=== PATIENT | female | born 1945 | race Caucasian/White ===

== ENCOUNTER 2018-10-27 08:19 | Day surgery (SDC) | payer MEDICARE, OTHER, SELFPAY ==
[2018-10-27] MEDS: PROPARACAINE 0.5% OPHTH SOL 2 DROPS EYE-OP (09:07)
[2018-10-27 09:10] VITALS: BP 122/75; PULSE 72; RESP 20; TEMP 35.9; O2SAT 100
[2018-10-27] MEDS: CATARACT EYE COMPOUND (10 DROPS/SYRINGE) 3 DROPS EYE-OP (09:11)
[2018-10-27 09:12] VITALS: BMI 18.5
--- NOTE | 2018-10-27 10:21 | PM.PREOP ---
Pre-operative Note Interval Note History & Physical reviewed/Exam performed by Physician: No Changes to H&P: No
--- NOTE | 2018-10-27 10:21 | PM.OP.1 ---
Operative Date/Time/Diagnoses Pre-op diagnosis: Nuclear cataract right eye Procedure & Clinicians Procedure: Cataract Surgery Same procedure as scheduled: Yes Surgeon: Wilmer Burns Anesthesia Type: MAC +/- and Sedation Operative Notes Procedure in detail: Patient brought to the operating suite. Tetracaine drops placed in the right eye. Patient was prepped and draped in sterile manner. Wire lid speculum was placed in the eye. Betadine drops were placed on the eye. This was irrigated. Lidocaine jelly was placed on the eye. A paracentesis port was created with a side-port blade. 0.1 mL 1% preservative free lidocaine was injected into the anterior chamber. The anterior chamber was deepened with viscoelastic. 2.6 mm keratome was used to create a temporal clear corneal incision. Cystotome and Utrata forceps were used to create continuous tear capsulorrhexis. Balanced salt solution was used to hydro dissect the nucleus. The phacoemulsification handpiece was inserted and the nucleus was removed using the stop and chop technique. The irrigation aspiration handpiece was inserted and the remaining cortex was removed. Anterior chamber was deepened with viscoelastic. An Hernandez ZCB00 intraocular lens with a power of 18.5 was injected into the capsular bag. Irrigation aspiration handpiece was inserted and the remaining viscoelastic was removed. Incision was hydrated with balanced salt solution and found to be leak free with pressure with Weck-Roro sponges. 0.1 mL Vigamox injected anterior chamber. 0.3 mL Kenalog 10 mg was injected subconjunctivally. Lid speculum was removed. The patient left the operating room in excellent condition. Complications: none Post-operative Condition: stable Disposition: same day surgery
[2018-10-27] MEDS: MOXIFLOXACIN INJ 5 MG/ML VIAL EYE-OP (10:36)
[2018-10-27] MEDS: CHONDROIDTIN/SOD HYALURONATE 1.05 ML SYRINGE INTRAOCULA (10:36)
[2018-10-27] MEDS: PHENYLEPHRINE/LIDOCAINE VIAL (OR) 0.2 ML EYE-OP (10:36)
[2018-10-27] MEDS: TRIAMCINOLONE 50 MG/5 ML VIAL INJ (10:36)
[2018-10-27] MEDS: LIDOCAINE JELLY 2% 5 ML 1 APPLIC TOP (10:37)
[2018-10-27] MEDS: TETRACAINE 0.5% OPHTH DROPS 4 ML 2 DROPS EYE-OP (10:37)
[2018-10-27] MEDS: BALANCED SALT IRRIG SOLN NO.2 500 ML, EPINEPHrine 1 MG IRR (10:37)
[2018-10-27 11:27] VITALS: BP 98/62; PULSE 68; RESP 16; TEMP 36.4; O2SAT 96
== END 2018-10-27 11:12 | disposition home or self-care (01) ==
LOC: OR 08:24
PROVIDERS: PCP Physician Assistant; Visit Provider Ophthalmology
PROC: (CPT 66984; principal; 2018-10-27 10:15)
DX: H25.11 Age-related nuclear cataract, right eye (principal)
CPT/HCPCS: 66984; J0171; J2250; J3010; J3301

== ENCOUNTER 2018-11-10 07:24 | Day surgery (SDC) | payer MEDICARE, OTHER, SELFPAY ==
[2018-11-10] MEDS: PROPARACAINE 0.5% OPHTH SOL 2 DROPS EYE-OP (08:25)
[2018-11-10] MEDS: CATARACT EYE COMPOUND (10 DROPS/SYRINGE) 3 DROPS EYE-OP ×3 (08:26→08:39)
[2018-11-10 08:29] VITALS: BP 142/82; PULSE 65; RESP 16; TEMP 37.2; O2SAT 96; BMI 18.4
--- NOTE | 2018-11-10 08:51 | PM.PREOP ---
Pre-operative Note Interval Note History & Physical reviewed/Exam performed by Physician: No Changes to H&P: No
--- NOTE | 2018-11-10 08:51 | PM.OP.1 ---
Operative Date/Time/Diagnoses Pre-op diagnosis: Nuclear Cataract Left eye Post-op diagnosis: same Procedure & Clinicians Surgeon: Wilmer Burns Anesthesia Type: MAC +/- and Sedation Operative Notes Procedure in detail: Patient brought to the operating suite. Tetracaine drops placed in the left eye. Patient was prepped and draped in sterile manner. Wire lid speculum was placed in the eye. Betadine drops were placed on the eye. This was irrigated. Lidocaine jelly was placed on the eye. A paracentesis port was created with a side-port blade. 0.1 mL 1% preservative free lidocaine was injected into the anterior chamber. The anterior chamber was deepened with viscoelastic. 2.6 mm keratome was used to create a temporal clear corneal incision. Cystotome and Utrata forceps were used to create continuous tear capsulorrhexis. Balanced salt solution was used to hydro dissect the nucleus. The phacoemulsification handpiece was inserted and the nucleus was removed using the stop and chop technique. The irrigation aspiration handpiece was inserted and the remaining cortex was removed. Anterior chamber was deepened with viscoelastic. An Hernandez ZCB00 intraocular lens with a power of 21.0 was injected into the capsular bag. Irrigation aspiration handpiece was inserted and the remaining viscoelastic was removed. Incision was hydrated with balanced salt solution and found to be leak free with pressure with Weck-Roro sponges. 0.1 mL Vigamox injected anterior chamber. 0.3 mL Kenalog 10 mg was injected subconjunctivally. Lid speculum was removed. The patient left the operating room in excellent condition. Complications: none Post-operative Condition: stable Disposition: same day surgery
[2018-11-10] MEDS: TETRACAINE 0.5% OPHTH DROPS 4 ML 2 DROPS EYE-OP (09:07)
[2018-11-10] MEDS: CHONDROIDTIN/SOD HYALURONATE 1.05 ML SYRINGE INTRAOCULA (09:07)
[2018-11-10] MEDS: MOXIFLOXACIN INJ 5 MG/ML VIAL EYE-OP (09:07)
[2018-11-10] MEDS: TRIAMCINOLONE 50 MG/5 ML VIAL INJ (09:07)
[2018-11-10] MEDS: LIDOCAINE JELLY 2% 5 ML 1 APPLIC TOP (09:07)
[2018-11-10] MEDS: PHENYLEPHRINE/LIDOCAINE VIAL (OR) 0.2 ML EYE-OP (09:08)
[2018-11-10] MEDS: BALANCED SALT IRRIG SOLN NO.2 500 ML, EPINEPHrine 1 MG IRR (09:08)
[2018-11-10 09:20] VITALS: BP 124/77; PULSE 74; RESP 16; TEMP 36.6; O2SAT 96
== END 2018-11-10 09:30 | disposition home or self-care (01) ==
LOC: OR 07:26
PROVIDERS: Visit Provider Ophthalmology
PROC: (CPT 66984; principal; 2018-11-10 09:15)
DX: H25.12 Age-related nuclear cataract, left eye (principal)
CPT/HCPCS: 66984; J0171; J2250; J3010; J3301

== ENCOUNTER → 2018-12-22 10:20 | Outpatient (CLI) | payer MEDICARE, OTHER, SELFPAY ==
--- NOTE | 2018-12-22 | DI.RAD.S_ITS ---
PROCEDURE: XR CHEST 2V INDICATIONS: Chronic obstructive pulmonary disease TECHNIQUE: 2 views of the chest were acquired. COMPARISON: [facility], , CHEST 2 VIEW, 04/26/2015, 11:30. FINDINGS: Surgical changes and devices: None. Lungs and pleura: Lungs are clear. Blunting of the costophrenic angles suggestive of trace pleural effusions. No pneumothorax. Mediastinum: Mediastinal contours are normal and unchanged. Heart size is normal. Bones and chest wall: No suspicious bony abnormalities. Soft tissues appear unremarkable. IMPRESSION: No consolidation. Probable trace bilateral pleural effusions. Dictated by: Skyler Francis M.D. on 12/22/2018 at 11:05 Approved by: Skyler Francis M.D. on 12/22/2018 at 11:07
--- NOTE | 2018-12-22 | DI.MG.S_ITS ---
BILATERAL DIGITAL SCREENING MAMMOGRAM 3D/2D WITH CAD: 12/22/2018 CLINICAL: Routine screening. Family history of breast cancer. Comparison is made to exams dated: 05/23/2016 mammogram, 06/23/2013 mammogram, and 05/01/2015 mammogram - [facility]. The tissue of both breasts is heterogeneously dense. This may lower the sensitivity of mammography. Current study was also evaluated with a Computer Aided Detection (CAD) system. There are benign calcifications in both breasts. There also are benign post operative findings in the right breast. No significant masses, calcifications, or other findings are seen in either breast. There has been no significant interval change. IMPRESSION: There is no mammographic evidence of malignancy. A 1 year screening mammogram is recommended. This exam was interpreted at Station ID: [id number]. NOTE: For mammograms, a report in lay terms will be sent to the patient. Approximately 15% of breast malignancies will not be visualized mammographically. In the management of a palpable breast mass, a negative mammogram must not discourage biopsy of a clinically suspicious lesion. Electronically Signed By: Roger de la cruz/soco:12/22/2018 10:57:02 letter sent: Normal Exam ACR BI-RADS Category 2: Benign Finding(s) 3342F
== END ==
PROVIDERS: PCP Internal Medicine; Visit Provider Internal Medicine
DX: Z12.31 Encounter for screening mammogram for malignant neoplasm of breast (principal); Z80.3 Family history of malignant neoplasm of breast; J44.9 Chronic obstructive pulmonary disease, unspecified
CPT/HCPCS: 71046; 77063; 77067

== ENCOUNTER → 2019-08-24 12:24 | Outpatient (CLI) | payer MEDICARE, OTHER, SELFPAY | PROVIDERS: PCP Internal Medicine; Referring Provider Internal Medicine; Visit Provider Internal Medicine | DX: M81.0 Age-related osteoporosis without current pathological fracture (principal); Z78.0 Asymptomatic menopausal state; F17.200 Nicotine dependence, unspecified, uncomplicated | CPT/HCPCS: 77080 ==

== ENCOUNTER → 2020-04-18 20:08 | Outpatient (ROUT) | payer MEDICARE, OTHER, SELFPAY ==
[2020-04-18 20:12] LABS: Add Manual Diff / Slide Review NO; Basophils Absolute Auto 0 /uL (0-100); Basophils Percent Auto 0.4 % (0-2); Eosinophils Absolute Auto 300 /uL (0-450); Eosinophils Percent Auto 3.5 % (2-4); Hemoglobin 14.4 g/dL (12.0-16.0); Lymphocytes Absolute Auto 1700 /uL (1100-4500); Lymphocytes Percent Auto 20.3 % (25-40); Mean Corpuscular HGB Conc 33.4 % (30-36); Mean Corpuscular Hemoglobin 30.6 PG (26-34); Mean Corpuscular Volume 91.5 fL (80-100); Monocytes Absolute Auto 500 /uL (0-900); Monocytes Percent Auto 6.3 % (3-14); Neutrophils Absolute Auto 5900 /uL (1500-7000); Neutrophils Percent Auto 69.5 % (50-75); Platelet Count 275 X10^3/uL (150-400); Red Cell Distribution Width 13.7 % (11.6-14.8); White Blood Cell Count 8.5 X10^3/uL (4.5-11.0)
[2020-04-18 20:19] LABS: Alanine Aminotransferase 26 IU/L (<35); Albumin 4.6 g/dL (3.5-5.0); Albumin Globulin Ratio 1.6 (1.0-2.8); Alkaline Phosphatase 59 U/L (38-126); Aspartate Aminotransferase 36 IU/L (14-36); BUN Creatinine Ratio 20.3 (6-22); Bilirubin Total 0.3 mg/dL (0.2-1.3); Blood Urea Nitrogen 14 mg/dL (7-17); Calcium 9.7 mg/dL (8.4-10.2); Carbon Dioxide 29 mmol/L (22-32); Chloride 102 mmol/L (98-107); Estimated Glomerular Filt Rate > 60.0 mL/min (>60); Globulin 2.8 g/dL (1.7-4.1); Glucose 117 mg/dL (80-110); HEMOLYSIS < 15 (0-50); Potassium 4.6 mmol/L (3.4-5.1); Sodium 138 mmol/L (137-145); Total Protein 7.4 g/dL (6.3-8.2)
[2020-04-18 20:49] LABS: TSH w/ Reflex to FT4 3.09 uIU/mL (0.47-4.68)
== END ==
PROVIDERS: PCP Internal Medicine; Visit Provider Internal Medicine
DX: R53.83 Other fatigue (principal)
CPT/HCPCS: 80053; 84443; 85025

== ENCOUNTER → 2020-04-21 15:14 | Outpatient (CLI) | payer MEDICARE, OTHER, SELFPAY ==
--- NOTE | 2020-04-21 | DI.MRI.S_ITS ---
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 After the administration of contrast, axial and coronal 3D VIBE or T1 spin echo with fat saturation through the brain. COMPARISON: None. FINDINGS: Image quality: Excellent. CSF Spaces: Basal cisterns are patent. No extra-axial fluid collections. Ventricles are normal in size and shape. Brain: No midline shift. No intracranial bleeds or masses. No abnormal intracranial enhancement. The brainstem appears normal. Diffusion-weighted images demonstrate no acute ischemic insults. No chronic ischemic insults. Normal intravascular flow voids are present. Skull and face: Calvarial marrow is normal in signal. Orbits appear normal. Sinuses: Sinuses and mastoids appear clear. IMPRESSION: No abnormality seen, no sign of intracranial malignancy. A source of hallucinations is not identified. Dictated by: Gino Alarcon M.D. on 04/21/2020 at 16:47 Approved by: Gino Alarcon M.D. on 04/21/2020 at 16:49
== END ==
PROVIDERS: PCP Internal Medicine; Referring Provider Internal Medicine; Visit Provider Internal Medicine
DX: C72.9 Malignant neoplasm of central nervous system, unspecified (principal); R44.3 Hallucinations, unspecified; J44.9 Chronic obstructive pulmonary disease, unspecified
CPT/HCPCS: 70553; A9579

== ENCOUNTER → 2020-04-28 11:15 | Outpatient (CLI) | payer MEDICARE, OTHER, SELFPAY ==
[2020-04-28 13:01] LABS: Vitamin B12 806 pg/mL (239-931)
[2020-05-01 14:36] LABS: Lead, Blood 3 ug/dL (0-4)
== END ==
PROVIDERS: PCP Internal Medicine; Referring Provider Internal Medicine; Visit Provider Internal Medicine
DX: Z77.018 Contact with and (suspected) exposure to other hazardous metals (principal); E53.8 Deficiency of other specified B group vitamins
CPT/HCPCS: 36415; 82175; 82607; 83655; 83825

== ENCOUNTER → 2020-09-25 11:22 | Outpatient (CLI) | payer MEDICARE, OTHER, SELFPAY ==
[2020-09-25 16:17] LABS: COVID19 -Nasal RAPID Negative (Negative)
== END ==
PROVIDERS: PCP Internal Medicine; Visit Provider Nurse Practitioner
DX: Z01.812 Encounter for preprocedural laboratory examination (principal); Z20.822 Contact with and (suspected) exposure to COVID-19
CPT/HCPCS: 87635; C9803

== ENCOUNTER 2020-09-26 13:02 | Day surgery (SDC) | payer MEDICARE, OTHER, SELFPAY ==
--- NOTE | 2020-09-26 | PATH_ITS ---
[facility] Accession Number: [id number] . 01 Material submitted: . PART A: cecum - CECAL POLYP PART B: colon - TRANSVERSE COLON POLYP X2 . 02 Diagnosis: A. Cecum, Polyp, Biopsy: Tubular adenoma. . B. Transverse Colon, Polyp x2, Biopsies: Tubular adenomas. [facility] 09/28/2020 1021 Local . 02 Electronically signed: . Brionna Hastings MD, Pathologist NPI- [id number] . 01 Gross description: . Part A: CECAL POLYP: Received in formalin are 2 fragment(s) of costa, soft tissue measuring 0.8 x 0.6 x 0.4 cm to 0.4 x 0.2 x 0.2 cm submitted entirely in 1 cassette(s) Part B: TRANSVERSE COLON POLYP X2: Received in formalin are 3 fragment(s) of costa, soft tissue measuring 0.5 x 0.2 x 0.2 cm to 0.4 x 0.2 x 0.1 cm submitted entirely in 1 cassette(s) /ELGIN 09/27/2020 0428 Local . 02 Pathologist provided ICD-10: D12.0, D12.3 . 02 CPT . 199577, [id number] Performed at: 01 [facility] Located within [facility] [address], [place], [place] [id number] MD Roger Quinteros MD Phone: [phone] Performed at: 02 [facility] [address] [place], [place] [id number] MD Brionna Hastings MD Phone: [phone]
[2020-09-26 13:52] VITALS: BMI 19.7
[2020-09-26 14:03] VITALS: BP 144/85; PULSE 93; RESP 16; TEMP 37; O2SAT 97
--- NOTE | 2020-09-26 14:12 | SUR.PREOP ---
Dr Bryant notified via [facility] of that patient reports that she saw her granddaugh[address] outside for less than 5 minutes and that since that time her daughter has developed COVID. Pt is asymptomatic, is fully vaccinated and has tested negative for COVID.
[2020-09-26] MEDS: SODIUM CHLORIDE 0.9% 1,000 ML 84 ML IV (14:15)
--- NOTE | 2020-09-26 14:15 | PM.HP.1 ---
History of Present Illness History of Present Illness Date Patient Seen: 09/26/20 Time Patient Seen: 14:15 Chief complaint: SDC Narrative: Personal history of colon polyps Patient History Medical History COPD (chronic obstructive pulmonary disease) Hyperlipidemia Retained lens material following cataract surgery of right eye Comment: Appendectomy Family & Social History Social History: household members spouse Tobacco & Substance use: Smoking Status Current every day smoker Smoking packs per day 0.5 alcohol intake never Substance Use Type does not use Meds Home Medications and Allergies Home Medications Medication Instructions Recorded Confirmed Type vitamins-iron fumarate 27 1 tab PO DAILY 10/27/18 09/26/20 History mg iron-folic acid 0.8 mg tablet ( Vitamin) simvastatin 20 mg tablet 20 mg PO BEDTIME 10/27/18 09/26/20 History ascorbic acid (vitamin C) 500 mg 500 mg PO DAILY 09/26/20 09/26/20 History tablet (Vitamin C) Allergies Allergy/AdvReac Type Severity Reaction Status Date / Time codeine AdvReac Mild Nausea Verified 09/26/20 13:50 Review of Systems Review of Systems ROS: Yes All systems reviewed with the patient and are negative except as otherwise documented Exam Vital Signs (past 8 hours): - 09/26/20 14:03 Temperature 98.6 F Pulse Rate 93 H Respiratory Rate 16 Blood Pressure 144/85 H Pulse Oximetry 97 Oxygen Delivery Method Room Air Const General: cooperative and comfortable Orientation: alert HENNH Head: normocephalic Ears: external ears normal Nose: external nose normal Face and sinus: normal facial exam Mouth: oral mucosae normal Eyes General: appearance normal, both eyes and all related structures Neck Neck: normal visual inspection Chest Chest: normal inspection of the chest Resp Effort & Inspection: normal respiratory effort Auscultation: clear to auscultation bilaterally Cardio Rate: regular rate Rhythm: regular rhythm Heart Sounds: no murmurs GI Inspection: normal to inspection Palpation: soft and No tender Auscultation: normal bowel sounds Skin General: no rashes or lesions noted and No jaundice Neuro General: patient alert and moves all extremities Cognition: normal cognition Speech: speech normal Extrem General: no pedal edema Psych Appearance: grossly normal Assessment & Plan Assessment & Plan narrative: Personal history of colon polyps last colonoscopy from 2007 was unremarkable. Colonoscopy is planned for today.
--- NOTE | 2020-09-26 14:17 | PM.PREOP ---
Pre-operative Note COVID-19 COVID-19 status: Negative Result date/Date tested (Pos, Neg/Pending): 09/25/20 Interval Note History & Physical reviewed/Exam performed by Physician: Yes Changes to H&P: No ASA Class (for procedural sedation): II
[2020-09-26] MEDS: fentaNYL 250 MCG/5 ML INJ IV (14:47)
[2020-09-26] MEDS: MIDAZOLAM 5 MG/5 ML VIAL IV (14:47)
--- NOTE | 2020-09-26 15:18 | PM.OP.ENDO ---
Operative Date/Time/Diagnoses Date of procedure: 09/26/20 Time of procedure: 15:18 Pre-op diagnosis: Personal history of colon polyps Post-op diagnosis: same Procedure & Clinicians Study performed: Colonoscopy with hot snare polypectomy Same procedure as scheduled: Yes Indications: Personal history of colon polyps Surgeon: Percy Jiang Procedure Notes SCOAP/Timeout: Done Procedure in detail: After the risks and benefits were explained, written and verbal informed consent was obtained. The patient was brought into the procedure room and placed into the left lateral decubitus position. Conscious sedation medication was applied as per nursing documentation. Digital rectal examination was accomplished. The scope was introduced into the patient and advanced under direct visualization to the cecum as identified by the appendiceal orifice and ileocecal valve. The scope was slowly withdrawn to carefully examine the mucosa for any defects or lesions. Comprehensive imaging was accomplished throughout the rectum including the dentate line. The colon was decompressed, the scope was then removed from the patient who tolerated the procedure well. 3 mg Versed 75 mcg fentanyl Bowel prep adequate Pediatric colonoscope Scope withdrawal time: 14 minutes Sedation minutes: 31 Complications: none Impression: Patient had a lengthy tortuous colon. Navigation was challenging. There was an approximately 8 mm sessile polyp in the cecum removed with hot snare. In the proximal transverse colon there were 2 smaller polyps measuring between 5 and 6 mm each sessile removed with hot snare as well. No additional pathology was appreciated throughout. Endoscopic diagnosis 1. Multiple colon polyps 2. Twisty colon Post-procedure Plan for aftercare: 1. Await histopathology 2. Consider repeat colonoscopy in 3 years. Disposition: PACU
[2020-09-26 15:23] VITALS: BP 122/69; PULSE 77; RESP 16; TEMP 36; O2SAT 96
[2020-09-26 15:28] VITALS: BP 121/53; PULSE 79; RESP 17; TEMP 35.7; O2SAT 95
[2020-09-26 15:36] VITALS: BP 135/68; PULSE 79; RESP 16; TEMP 36.1; O2SAT 95
--- NOTE | 2020-09-26 15:46 | SUR.PHASEII ---
pt given discharge instructions. Pt states she understands discharge instructions. Pt to be discharged with her .
== END 2020-09-26 15:47 | disposition home or self-care (01) ==
PROVIDERS: PCP Internal Medicine; Referring Provider Internal Medicine Gastroenterology; Visit Provider Internal Medicine Gastroenterology
PROC: 0DJD8ZZ Inspection of Lower Intestinal Tract, Via Natural or Artificial Opening Endoscopic (ICD-10-PCS; CPT 45378; principal; 2020-09-26 14:00)
DX: Z12.11 Encounter for screening for malignant neoplasm of colon (principal); Z86.010 Personal history of colon polyps; J44.9 Chronic obstructive pulmonary disease, unspecified; E78.5 Hyperlipidemia, unspecified; F17.210 Nicotine dependence, cigarettes, uncomplicated; D12.3 Benign neoplasm of transverse colon; D12.0 Benign neoplasm of cecum
CPT/HCPCS: 45385; J2250; J3010

== ENCOUNTER → 2020-12-04 08:58 | Outpatient (CLI) | payer MEDICARE, OTHER, SELFPAY ==
--- NOTE | 2020-12-04 08:59 | DI.MG.S_ITS ---
BILATERAL DIGITAL SCREENING MAMMOGRAM 3D/2D WITH CAD: 12/04/2020 CLINICAL: Routine screening. Family history of breast cancer. Comparison is made to exams dated: 12/22/2018 mammogram, 05/23/2016 mammogram, 05/01/2015 mammogram, and 06/23/2013 mammogram - [facility]. The tissue of both breasts is heterogeneously dense. This may lower the sensitivity of mammography. Current study was also evaluated with a Computer Aided Detection (CAD) system. There are benign diffuse punctate calcifications in both breasts. Scar marker on the right breast. No significant masses, calcifications, or other findings are seen in either breast. There has been no significant interval change. IMPRESSION: BENIGN There is no mammographic evidence of malignancy. A 1 year screening mammogram is recommended. This exam was interpreted at Station ID: [id number]. NOTE: For mammograms, a report in lay terms will be sent to the patient. Approximately 15% of breast malignancies will not be visualized mammographically. In the management of a palpable breast mass, a negative mammogram must not discourage biopsy of a clinically suspicious lesion. Electronically Signed By: Skyler Francis M.D. slc/:12/04/2020 10:05:05 letter sent: Normal Exam ACR BI-RADS Category 2: Benign Finding(s) 3342F
== END ==
PROVIDERS: PCP Internal Medicine; Referring Provider Internal Medicine; Visit Provider Internal Medicine
DX: Z12.31 Encounter for screening mammogram for malignant neoplasm of breast (principal); Z80.3 Family history of malignant neoplasm of breast
CPT/HCPCS: 77063; 77067

== ENCOUNTER → 2022-06-21 07:29 | Outpatient (CLI) | payer OTHER, SELFPAY ==
--- NOTE | 2022-06-21 | DI.MG.S_ITS ---
BILATERAL DIGITAL SCREENING MAMMOGRAM 3D/2D WITH CAD: 06/21/2022 CLINICAL: Routine screening. Family history of breast cancer. Comparison is made to exams dated: 12/04/2020 mammogram, 12/22/2018 mammogram, and 05/23/2016 mammogram - [facility]. Both breasts are heterogeneously dense, which may obscure small masses (category c / 51-75% glandular tissue). Current study was also evaluated with a Computer Aided Detection (CAD) system. There are benign calcifications in both breasts. There also are benign post operative findings in the right breast. No significant masses, calcifications, or other findings are seen in either breast. There has been no significant interval change. IMPRESSION: BENIGN There is no mammographic evidence of malignancy. A 1 year screening mammogram is recommended. Based on the Tyrer Cuzick model (a risk assessment model) the patient's lifetime risk is 9.4% and her 10 year risk is 0.0%. According to the ACR, ACS, and NCCN guidelines, an annual breast MRI exam along with mammogram is recommended if the patient's lifetime risk is 20% or greater. This exam was interpreted at Station ID: [id number]. NOTE: For mammograms, a report in lay terms will be sent to the patient. Approximately 15% of breast malignancies will not be visualized mammographically. In the management of a palpable breast mass, a negative mammogram must not discourage biopsy of a clinically suspicious lesion. Electronically Signed By: Carlos Alberto tavares/soco:06/21/2022 08:15:11 letter sent: Normal Exam ACR BI-RADS Category 2: Benign Finding(s) 3342F
== END ==
PROVIDERS: PCP Internal Medicine; Referring Provider Internal Medicine; Visit Provider Internal Medicine
DX: Z12.31 Encounter for screening mammogram for malignant neoplasm of breast (principal); Z80.3 Family history of malignant neoplasm of breast
CPT/HCPCS: 77063; 77067

== ENCOUNTER → 2022-11-25 09:55 | Outpatient (CLI) | payer MEDICARE, SELFPAY ==
[2022-11-25 11:09] LABS: Hematocrit 41.2 % (36-46); Hemoglobin 14.3 g/dL (12.0-16.0); Mean Corpuscular HGB Conc 34.6 % (30-36); Mean Corpuscular Hemoglobin 31.1 PG (26-34); Mean Corpuscular Volume 89.9 fL (80-100); Platelet Count 238 X10^3/uL (150-400); Red Blood Cell Count 4.58 X10^6/uL (4.0-5.2); White Blood Cell Count 7.1 X10^3/uL (4.5-11.0)
[2022-11-25 11:36] LABS: Alanine Aminotransferase 28 IU/L (<35); Albumin 4.2 g/dL (3.5-5.0); Albumin Globulin Ratio 1.6 (1.0-2.8); Alkaline Phosphatase 53 U/L (38-126); Aspartate Aminotransferase 34 IU/L (14-36); BUN Creatinine Ratio 20.3 (6-22); Bilirubin Total 0.3 mg/dL (0.2-1.3); Blood Urea Nitrogen 13 mg/dL (7-17); Calcium 9.4 mg/dL (8.4-10.2); Carbon Dioxide 29 mmol/L (22-32); Chloride 100 mmol/L (98-107); Cholesterol 190 mg/dL (140-199); Estimated Glomerular Filt Rate > 60 mL/min (>60); Globulin 2.6 g/dL (1.7-4.1); Glucose 106 mg/dL (80-110); HDL Cholesterol 93 mg/dL (40-60); HEMOLYSIS < 15 (0-50); LDL Cholesterol Calculated 83 mg/dL (<100); Potassium 4.4 mmol/L (3.4-5.1); Sodium 136 mmol/L (137-145); Total Protein 6.8 g/dL (6.3-8.2); Triglycerides 71 mg/dL (35-150)
[2022-11-25 12:00] LABS: TSH w/ Reflex to FT4 2.39 uIU/mL (0.47-4.68)
== END ==
PROVIDERS: PCP Internal Medicine; Referring Provider Internal Medicine; Visit Provider Internal Medicine
DX: E78.2 Mixed hyperlipidemia (principal); M81.0 Age-related osteoporosis without current pathological fracture; R63.4 Abnormal weight loss
CPT/HCPCS: 36415; 80053; 80061; 84443; 85027

== ENCOUNTER 2023-05-15 09:35 | Emergency (ER) | payer MEDICARE, SELFPAY ==
[2023-05-15] VITALS (10 sets, daily range): BP systolic 161–212; BP diastolic 86–101; PULSE 77–96; RESP 14–27; TEMP 36.8; O2SAT 91–98; BMI 26.6
--- NOTE | 2023-05-15 09:48 | DI.US.S_ITS ---
PROCEDURE: US ABDOMEN LIMITED INDICATIONS: RUQ ABD PAIN TECHNIQUE: Real-time focused scanning was performed of the abdomen, with image documentation. COMPARISON: None. FINDINGS: Liver is unremarkable with normal echotexture without mass. There is gallbladder sludge and there is a single 5 mm stone in the gallbladder. No gallbladder wall thickening or pain on examination. Nondilated biliary tree. Common bile duct measures 3.0 mm. Pancreas not visualized secondary to overlying bowel gas. IMPRESSION: Cholelithiasis without evidence of acute cholecystitis. Dictated by: Ricardo Morton M.D. on 05/15/2023 at 10:42 Approved by: Ricardo Morton M.D. on 05/15/2023 at 10:43
--- NOTE | 2023-05-15 09:48 | DI.RAD.S_ITS ---
PROCEDURE: XR CHEST 1V INDICATIONS: RUQ PAIN TECHNIQUE: One view of the chest was acquired. COMPARISON: [facility], CT, CT LOW DOSE LUNG CA SCREENING, 07/02/2022, 11:44. [facility], CR, XR CHEST 2V, 12/22/2018, 10:24. FINDINGS: Surgical changes and devices: None. Lungs and pleura: Lungs are clear. No pleural effusions or pneumothorax. Mediastinum: Mediastinal contours appear normal. Heart size is minimally prominent. Bones and chest wall: No suspicious bony lesions. Overlying soft tissues appear unremarkable. IMPRESSION: No acute pulmonary process. Dictated by: Trisha Rogers M.D. on 05/15/2023 at 11:02 Approved by: Trisha Rogers M.D. on 05/15/2023 at 11:02
--- NOTE | 2023-05-15 09:51 | ED.ABDPAIN ---
HPI - Abdominal Pain General Chief Complaint: Abdominal Pain Stated Complaint: RUQ Pain Time Seen by Provider: 05/15/23 09:40 Source: patient Mode of arrival: Ambulatory History of Present Illness HPI narrative: 77-year-old female with history of hypertension presents from her primary care doctor's office for right-sided lower and upper abdominal pain. Patient states that pain began this morning initially in the right lower quadrant. She had cream of mushroom soup and some toast with butter for breakfast. At her primary care doctor's office her pain went into her right upper quadrant and caused her to bend over in pain. Patient states that her pain is currently nearly resolved. Denies history of abdominal surgeries. Related Data Home Medications Medication Instructions Recorded Confirmed simvastatin 20 mg tablet 20 mg PO BEDTIME 10/27/18 05/15/23 ascorbic acid (vitamin C) 500 mg 500 mg PO DAILY 09/26/20 05/15/23 tablet (Vitamin C) calcium carbonate 500 mg calcium 1,000 mg PO DAILY 11/25/22 05/15/23 (1,250 mg) tablet cholecalciferol (vitamin D3) 25 25 mcg PO DAILY 11/25/22 05/15/23 mcg (1,000 unit) capsule Allergies Allergy/AdvReac Type Severity Reaction Status Date / Time codeine AdvReac Mild Nausea Verified 05/15/23 09:46 Review of Systems Review of Systems Narrative: NEGATIVE EXCEPT NOTED ABOVE Patient History Medical History Chronic airway obstruction, mixed type Unspecified chronic bronchitis Mumps Measles Hepatitis A (~1965) Chicken pox Fecal incontinence Slow transit constipation Weight loss, abnormal Do not resuscitate Age-related osteoporosis without current pathological fracture Tobacco use disorder Allergic rhinitis Mixed hyperlipidemia Hallucinations Retained lens material following cataract surgery of right eye Hyperlipidemia Surgical History Anesthesia History of appendectomy Family History Father Cancer Mother Breast cancer Hyperlipidemia Brother No problems noted. Sister Breast cancer Social History household members: spouse Smoking Status: Current every day smoker alcohol intake: never Smoking Status: Current every day smoker alcohol intake frequency: holidays/special occasions only Substance Use Type: does not use Exam Initial Vital Signs Initial Vital Signs: Vital Signs Temperature 98.3 F 05/15/23 09:37 Pulse Rate 89 05/15/23 09:37 Respiratory Rate 18 05/15/23 09:37 Blood Pressure 175/100 H 05/15/23 09:37 Pulse Oximetry 93 05/15/23 09:37 Oxygen Delivery Method Room Air 05/15/23 09:37 Const: Awake, alert, no acute distress, nontoxic appearing Cardiac: regular rate, regular rhythm RESP: unlabored, clear bilaterally, no wheezing GI: Soft, tenderness to deep palpation right lower and right upper quadrants MSK: Atraumatic, full range of motion, pulses equal Skin: Warm, Dry, intact, no rashes Neuro: AO x3, CN II-XII grossly intact, moves all extremities Course Orders Ordered: Discontinued Medications Acetaminophen (Acetaminophen 325 Mg Tablet) 975 mg PO NOW ONE Stop: 05/15/23 10:03 Last Admin: 05/15/23 10:30 Dose: Not Given Documented By: MARY Sodium Chloride (Normal Saline 0.9%) 1,000 mls @ 1,000 mls/hr IV BOLUS ONE Stop: 05/15/23 10:47 Last Infusion: 05/15/23 11:30 Dose: Infused Documented By: Admin: 05/15/23 10:00 Dose: 1,000 mls/hr Documented By: MARY Morphine Sulfate (Morphine 4 Mg/Ml Inj) 4 mg IV NOW ONE Stop: 05/15/23 09:49 Last Admin: 05/15/23 09:59 Dose: Not Given Documented By: MARY Vital Signs Vital signs: Vital Signs - 8 hr 05/15/23 10:30 05/15/23 10:30 05/15/23 11:00 Pulse Rate 77 Respiratory Rate 14 Blood Pressure 172/89 H 185/89 H Pulse Oximetry 98 Oxygen Delivery Method Room Air 05/15/23 11:00 05/15/23 11:19 05/15/23 11:19 Pulse Rate 81 89 Respiratory Rate 21 20 Blood Pressure 176/86 H Pulse Oximetry 91 93 Oxygen Delivery Method 05/15/23 11:30 05/15/23 11:30 05/15/23 12:00 Pulse Rate 96 H Respiratory Rate 27 H Blood Pressure 212/94 H 170/98 H Pulse Oximetry 93 Oxygen Delivery Method 05/15/23 12:00 05/15/23 12:30 05/15/23 12:30 Pulse Rate 86 85 Respiratory Rate 23 Blood Pressure 161/101 H Pulse Oximetry 97 94 Oxygen Delivery Method 05/15/23 13:00 05/15/23 13:00 Pulse Rate 83 Respiratory Rate 21 Blood Pressure 198/88 H Pulse Oximetry 91 Oxygen Delivery Method MDM - Abdominal Pain Differential Diagnosis Differential diagnosis: Likely abdominal pain, acute appendicitis and calculus of kidney Lab Data 05/15/23 09:47 05/15/23 09:47 Labs: Lab Results 05/15/23 05/15/23 Range/Units 09:47 10:00 WBC 9.3 (4.5-11.0) X10^3/uL RBC 4.98 (4.0-5.2) X10^6/uL Hgb 15.7 (12.0-16.0) g/dL Hct 45.9 (36-46) % MCV 92.0 (80-100) fL MCH 31.6 (26-34) PG MCHC 34.3 (30-36) % RDW 14.0 (11.6-14.8) % Plt Count 238 (150-400) X10^3/uL Neut % (Auto) 77.3 H (50-75) % Lymph % (Auto) 14.4 L (25-40) % [place] % (Auto) 6.1 (3-14) % Eos % (Auto) 1.5 L (2-4) % Baso % (Auto) 0.7 (0-2) % Neut # (Auto) 7200 H (6684-8604) /uL Lymph # (Auto) 1300 (7746-3477) /uL [place] # (Auto) 600 (0-900) /uL Eos # (Auto) 100 (0-450) /uL Baso # (Auto) 100 (0-100) /uL Sodium 137 (137-145) mmol/L Potassium 4.4 (3.4-5.1) mmol/L Chloride 99 (98-107) mmol/L Carbon Dioxide 37 H (22-32) mmol/L BUN 15 (7-17) mg/dL Creatinine 0.58 (0.52-1.04) mg/dL Estimated GFR > 60 (>60) mL/min BUN/Creatinine Ratio 25.9 H (6-22) Glucose 105 (80-110) mg/dL Lactate 0.9 (0.7-2.1) mmol/L Calcium 9.6 (8.4-10.2) mg/dL Total Bilirubin 0.6 (0.2-1.3) mg/dL AST 40 H (14-36) IU/L ALT 27 (<35) IU/L Alkaline Phosphatase 54 (38-126) U/L Total Protein 7.5 (6.3-8.2) g/dL Albumin 4.4 (3.5-5.0) g/dL Globulin 3.1 (1.7-4.1) g/dL Albumin/Globulin Ratio 1.4 (1.0-2.8) Lipase 104 (23-300) U/L Urine Color Yellow Urine Appearance Clear Urine pH 6.0 (4.5-8.0) Ur Specific [place] 1.010 (1.000-1.035) Urine Protein Negative (Negative) Urine Glucose (UA) Negative (Negative) g/dL Urine Ketones Negative (NEGATIVE) Urine Occult Blood Negative (Negative) Urine Nitrate Negative (Negative) Urine Bilirubin Negative (NEGATIVE) Urine Urobilinogen 0.2 (0.2) E.U./dL Ur Leukocyte Esterase Trace H (NEGATIVE) Urine RBC None seen (0-5/HPF) Urine WBC 0-1/hpf (0-5/HPF) Ur Squamous Epith Cells 0-1 /hpf (0-5/HPF) Urine Bacteria None seen (None) Ur Culture Indicated? Cult not indicated Vol Urine Centrifuged 10ml (spun) Imaging Data US - abdomen: Radiologist's Impression: PROCEDURE: US ABDOMEN LIMITED ? INDICATIONS:? RUQ ABD PAIN ? TECHNIQUE:?? Real-time focused scanning was performed of the abdomen, with image documentation.?? ? COMPARISON:? None. ? FINDINGS:? Liver is unremarkable with normal echotexture without mass. ? There is gallbladder sludge and there is a single 5 mm stone in the gallbladder.? No? gallbladder wall thickening or pain on examination. ? Nondilated biliary tree.? Common bile duct measures 3.0 mm. ? Pancreas not visualized secondary to overlying bowel gas. ? IMPRESSION:? Cholelithiasis without evidence of acute cholecystitis. ? ? Dictated by: Ricardo Morton M.D. on 05/15/2023 at 10:42? ? ? Approved by: Ricardo Morton M.D. on 05/15/2023 at 10:43? Chest x-ray: Radiologist's Impression: PROCEDURE: XR CHEST 1V INDICATIONS: RUQ PAIN TECHNIQUE: One view of the chest was acquired. COMPARISON: [facility], CT, CT LOW DOSE LUNG CA SCREENING, 07/02/2022, 11:44. [facility], CR, XR CHEST 2V, 12/22/2018, 10:24. FINDINGS: Surgical changes and devices: None. Lungs and pleura: Lungs are clear. No pleural effusions or pneumothorax. Mediastinum: Mediastinal contours appear normal. Heart size is minimally prominent. Bones and chest wall: No suspicious bony lesions. Overlying soft tissues appear unremarkable. IMPRESSION: No acute pulmonary process. Dictated by: Trisha Rogers M.D. on 05/15/2023 at 11:02 Approved by: Trisha Rogers M.D. on 05/15/2023 at 11:02 CT scan - abdomen/pelvis: Radiologist's Impression: PROCEDURE: CT ABDOMEN PELVIS W CON INDICATIONS: RUQ AND RLQ ABD PAIN TECHNIQUE: After the administration of intravenous contrast, axial sections acquired from the lung bases to the pubic symphysis. Coronal and sagittal reformats were performed. For radiation dose reduction, the following was used: automated exposure control, adjustment of mA and/or kV according to patient size. COMPARISON: None. FINDINGS: Image quality: Diagnostic. Lower Chest: No significant findings. ABDOMEN: Liver: No solid mass. A hyperdense lesion in the posterior segment on image 18 of series 2 measuring approximately 1.7 cm likely represents flash filling of a hemangioma. Gallbladder: Question tiny gallstone. Biliary ducts: No biliary dilation. Pancreas: No ductal dilation. Spleen: Size is within normal limits. Adrenal Glands: No adrenal nodules. Kidneys and Ureters: No hydronephrosis. No solid mass. No complex renal cystic lesion which requires follow up. Stomach and Bowel: Normal colonic caliber, without significant wall thickening. Moderately large right-sided fecal load. Paucity of abdominal fat and lack of oral contrast diminishes the ability to interpret bowel findings. Peritoneum: No abnormal intraperitoneal fluid. No free air. Upper pelvic surgical clips. Ventral Wall: No significant ventral hernia. Abdominal Nodes: No retroperitoneal or mesenteric adenopathy by size criteria. Vessels: Aorta and inferior vena cava are normal in size. Extensive atherosclerotic calcifications in the aorta and iliacs. PELVIS: Pelvic Organs: Retroverted uterus. Bladder: Mild diffuse bladder wall thickening Pelvic Nodes: No enlarged lymph nodes. Miscellaneous: No inguinal hernias are seen. 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 The bilateral gonadal veins are markedly dilated and clearly reflux in this individual. There is a clinical syndrome of chronic pelvic venous congestion, in which certain individuals with this finding can be symptomatic. However, symptomatology is rare in this age group. Bones: No aggressive osseous abnormality. Diffuse lumbar degenerative change. IMPRESSION: 1. Paucity of peritoneal fat and lack of oral contrast decrease sensitivity for identifying bowel abnormalities. 2. No gross bowel abnormality is identified. 3. Moderately large right colonic fecal debris. 4. Markedly dilated gonadal veins bilaterally, which reflux, and give rise to extensive pelvic varicosities. In certain individuals, this can give rise to pain secondary to pelvic venous congestion syndrome. However, it is rare to be symptomatic in this age group. 5. Extensive atherosclerotic calcifications. 6. Mild diffuse bladder wall thickening. Recommend correlation for presence or absence of bacterial cystitis. Dictated by: Ricardo Morton M.D. on 05/15/2023 at 11:43 Approved by: Ricardo Morton M.D. on 05/15/2023 at 11:53 MDM Narrative Medical decision making narrative: Well-appearing patient with both right lower and right upper quadrant abdominal pain. Patient currently resting comfortably in ED bed, minimal tenderness to deep palpation, however she was reportedly doubled over in pain at her primary care doctor's office prior to ED evaluation. Laboratory work, ultrasound, suma medication ordered. Patient declined pain medications. Laboratory work reviewed, there was no leukocytosis, electrolytes are within normal limits, kidney and liver enzymes normal. Ultrasound of the right upper quadrant does not show any acute findings -there is a stone without cholecystitis. Chest x-ray reviewed, unremarkable. CT scan of the abdomen and pelvis reviewed, numerous incidental findings, however no acute abnormalities identified. There was bladder wall thickening seen on CT, however urinalysis is clear with no signs of infection. There are diffuse atherosclerotic changes. Patient has had no reoccurrence of her pain since arrival to the emergency department. Patient and her family informed of all lab and imaging findings at bedside. Question if patient had biliary colic leading to her symptoms, however she is pain-free at this time. Recommended decreased fat consumption over the next several days and follow up with General surgery if she continues to experience abdominal pain. Prior to discharge patient's reported concern about patient's elevated blood pressures. Patient states she was not take any medications for high blood pressure and does not check her blood pressures at home. She has no signs or symptoms of hypertensive emergency at this time. She likely has chronic hypertension due to age, smoking history. I offered to start patient on a low-dose blood pressure medication, she declined stating that she would follow up with her primary care physician next week. Discharge Plan Departure Patient Disposition: Home Clinical Impression: Hypertension Abdominal pain Qualifiers: Abdominal location: right upper quadrant Qualified Code(s): R10.11 - Right upper quadrant pain Instructions: DI for Biliary Colic Activity Restrictions/Additional Instructions: YOUR LABORATORY WORK AND CT SCAN TODAY DID NOT SHOW ANY OBVIOUS ABNORMALITIES. YOU DID HAVE A GALLSTONE IN YOUR GALLBLADDER. YOUR BLOOD PRESSURE WAS HIGH TODAY, MEASURE YOUR BLOOD PRESSURE ONCE IN THE MORNING AND ONCE AT NIGHT AND BRING THIS DIARY TO YOU TO DR. FLANAGAN IN 1 WEEK Prescriptions: No Action calcium carbonate 500 mg calcium (1,250 mg) tablet 1,000 mg PO DAILY cholecalciferol (vitamin D3) 25 mcg (1,000 unit) capsule 25 mcg PO DAILY ascorbic acid (vitamin C) [Vitamin C] 500 mg Tablet 500 mg PO DAILY simvastatin 20 mg Tablet 20 mg PO BEDTIME Referrals: Cruzito Flanagan MD [Primary Care Provider] - Stand Alone Forms: Patient Portal/API
[2023-05-15 09:54] LABS: Add Manual Diff / Slide Review NO; Basophils Absolute Auto 100 /uL (0-100); Basophils Percent Auto 0.7 % (0-2); Eosinophils Absolute Auto 100 /uL (0-450); Eosinophils Percent Auto 1.5 % (2-4); Hematocrit 45.9 % (36-46); Hemoglobin 15.7 g/dL (12.0-16.0); Lymphocytes Absolute Auto 1300 /uL (1100-4500); Lymphocytes Percent Auto 14.4 % (25-40); Mean Corpuscular HGB Conc 34.3 % (30-36); Mean Corpuscular Hemoglobin 31.6 PG (26-34); Monocytes Absolute Auto 600 /uL (0-900); Monocytes Percent Auto 6.1 % (3-14); Neutrophils Absolute Auto 7200 /uL (1500-7000); Neutrophils Percent Auto 77.3 % (50-75); Platelet Count 238 X10^3/uL (150-400); Red Blood Cell Count 4.98 X10^6/uL (4.0-5.2); White Blood Cell Count 9.3 X10^3/uL (4.5-11.0)
[2023-05-15] MEDS: SODIUM CHLORIDE 0.9% 1,000 ML 1000 ML IV (10:00)
--- NOTE | 2023-05-15 10:19 | DI.CT.S_ITS ---
PROCEDURE: CT ABDOMEN PELVIS W CON INDICATIONS: RUQ AND RLQ ABD PAIN TECHNIQUE: After the administration of intravenous contrast, axial sections acquired from the lung bases to the pubic symphysis. Coronal and sagittal reformats were performed. For radiation dose reduction, the following was used: automated exposure control, adjustment of mA and/or kV according to patient size. COMPARISON: None. FINDINGS: Image quality: Diagnostic. Lower Chest: No significant findings. ABDOMEN: Liver: No solid mass. A hyperdense lesion in the posterior segment on image 18 of series 2 measuring approximately 1.7 cm likely represents flash filling of a hemangioma. Gallbladder: Question tiny gallstone. Biliary ducts: No biliary dilation. Pancreas: No ductal dilation. Spleen: Size is within normal limits. Adrenal Glands: No adrenal nodules. Kidneys and Ureters: No hydronephrosis. No solid mass. No complex renal cystic lesion which requires follow up. Stomach and Bowel: Normal colonic caliber, without significant wall thickening. Moderately large right-sided fecal load. Paucity of abdominal fat and lack of oral contrast diminishes the ability to interpret bowel findings. Peritoneum: No abnormal intraperitoneal fluid. No free air. Upper pelvic surgical clips. Ventral Wall: No significant ventral hernia. Abdominal Nodes: No retroperitoneal or mesenteric adenopathy by size criteria. Vessels: Aorta and inferior vena cava are normal in size. Extensive atherosclerotic calcifications in the aorta and iliacs. PELVIS: Pelvic Organs: Retroverted uterus. Bladder: Mild diffuse bladder wall thickening Pelvic Nodes: No enlarged lymph nodes. Miscellaneous: No inguinal hernias are seen. 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 The bilateral gonadal veins are markedly dilated and clearly reflux in this individual. There is a clinical syndrome of chronic pelvic venous congestion, in which certain individuals with this finding can be symptomatic. However, symptomatology is rare in this age group. Bones: No aggressive osseous abnormality. Diffuse lumbar degenerative change. IMPRESSION: 1. Paucity of peritoneal fat and lack of oral contrast decrease sensitivity for identifying bowel abnormalities. 2. No gross bowel abnormality is identified. 3. Moderately large right colonic fecal debris. 4. Markedly dilated gonadal veins bilaterally, which reflux, and give rise to extensive pelvic varicosities. In certain individuals, this can give rise to pain secondary to pelvic venous congestion syndrome. However, it is rare to be symptomatic in this age group. 5. Extensive atherosclerotic calcifications. 6. Mild diffuse bladder wall thickening. Recommend correlation for presence or absence of bacterial cystitis. Dictated by: Ricardo Morton M.D. on 05/15/2023 at 11:43 Approved by: Ricardo Morton M.D. on 05/15/2023 at 11:53
[2023-05-15 10:21] LABS: Lactate (Lactic Acid) 0.9 mmol/L (0.7-2.1)
[2023-05-15 10:22] LABS: Alanine Aminotransferase 27 IU/L (<35); Albumin 4.4 g/dL (3.5-5.0); Albumin Globulin Ratio 1.4 (1.0-2.8); Alkaline Phosphatase 54 U/L (38-126); Aspartate Aminotransferase 40 IU/L (14-36); BUN Creatinine Ratio 25.9 (6-22); Bilirubin Total 0.6 mg/dL (0.2-1.3); Blood Urea Nitrogen 15 mg/dL (7-17); Calcium 9.6 mg/dL (8.4-10.2); Carbon Dioxide 37 mmol/L (22-32); Chloride 99 mmol/L (98-107); Estimated Glomerular Filt Rate > 60 mL/min (>60); Globulin 3.1 g/dL (1.7-4.1); Glucose 105 mg/dL (80-110); HEMOLYSIS 18 (0-50); Lipase 104 U/L (23-300); Potassium 4.4 mmol/L (3.4-5.1); Sodium 137 mmol/L (137-145); Total Protein 7.5 g/dL (6.3-8.2)
[2023-05-15 10:24] LABS: Appearance Urine UA CLEAR; Bilirubin Urine UA NEGATIVE (NEGATIVE); Color Urine UA YELLOW; Glucose Urine UA NEGATIVE (Negative); Ketones Urine UA NEGATIVE (NEGATIVE); Leukocyte Esterase Urine UA TRACE (NEGATIVE); Nitrite Urine UA NEGATIVE (Negative); Occult Blood Urine UA NEGATIVE (Negative); Protein Urine UA NEGATIVE (Negative); Urobilinogen Urine UA 0.2 E.U./dL (0.2)
[2023-05-15 10:40] LABS: Bacteria Urine None Seen; Culture Indicated Urine Cult Not Indicated; RBC Urine None Seen (0-5/HPF); Squamous Epithelial Cell Urine 0-1 /HPF (0-5/HPF); Urine Volume 10mL (spun); WBC Urine 0-1/HPF (0-5/HPF)
== END 2023-05-15 17:17 | disposition home or self-care (01) ==
PROVIDERS: Emergency Provider Emergency Medicine; PCP Internal Medicine
DX: I10 Essential (primary) hypertension (principal); R10.11 Right upper quadrant pain
CPT/HCPCS: 36415; 71045; 74177; 76705; 80053; 81001; 83605; 83690; 85025; 93005; 99284; Q9967

== ENCOUNTER → 2023-05-20 10:16 | Outpatient (CLI) | payer MEDICARE, SELFPAY ==
[2023-05-20 11:02] LABS: Hematocrit 43.9 % (36-46); Hemoglobin 14.9 g/dL (12.0-16.0); Mean Corpuscular HGB Conc 33.8 % (30-36); Mean Corpuscular Hemoglobin 31.1 PG (26-34); Mean Corpuscular Volume 91.7 fL (80-100); Platelet Count 243 X10^3/uL (150-400); Red Blood Cell Count 4.79 X10^6/uL (4.0-5.2); Red Cell Distribution Width 14.3 % (11.6-14.8); White Blood Cell Count 8.1 X10^3/uL (4.5-11.0)
[2023-05-20 11:42] LABS: Alanine Aminotransferase 31 IU/L (<35); Albumin 4.3 g/dL (3.5-5.0); Albumin Globulin Ratio 1.6 (1.0-2.8); Alkaline Phosphatase 57 U/L (38-126); Aspartate Aminotransferase 44 IU/L (14-36); Bilirubin Total 0.5 mg/dL (0.2-1.3); Blood Urea Nitrogen 12 mg/dL (7-17); Calcium 9.4 mg/dL (8.4-10.2); Carbon Dioxide 35 mmol/L (22-32); Chloride 100 mmol/L (98-107); Estimated Glomerular Filt Rate > 60 mL/min (>60); Globulin 2.7 g/dL (1.7-4.1); Glucose 96 mg/dL (80-110); HEMOLYSIS < 15 (0-50); Potassium 4.5 mmol/L (3.4-5.1); Sodium 138 mmol/L (137-145)
== END ==
PROVIDERS: PCP Internal Medicine; Referring Provider Internal Medicine; Visit Provider Internal Medicine
DX: R10.11 Right upper quadrant pain (principal)
CPT/HCPCS: 36415; 80053; 85027

== ENCOUNTER → 2023-05-23 11:55 | Outpatient (CLI) | payer MEDICARE, SELFPAY ==
--- NOTE | 2023-05-23 11:57 | DI.CT.S_ITS ---
PROCEDURE: CT CHEST WO CON INDICATIONS: followup 07/05/2022 CT scan at [facility] TECHNIQUE: Noncontrast 5 mm thick sections acquired from the pulmonary apices to the posterior costophrenic angles. 1 mm lung window, 5 mm thick coronal and sagittal and 7 mm axial MIP reformats were then acquired. For radiation dose reduction, the following was used: automated exposure control, adjustment of mA and/or kV according to patient size. COMPARISON: [facility], CT, CT LOW DOSE LUNG CA SCREENING, 07/02/2022, 11:44. FINDINGS: Image quality: Diagnostic. Lower Neck: No enlarged lymph nodes. Thyroid: No thyroid nodules which require sonographic follow up, per consensus guidelines. Axillae: No enlarged lymph nodes. Chest Wall: Unremarkable. Bones: Unremarkable. Lungs and Pleura: No pneumothorax or pleural effusions. Moderate centrilobular emphysema. Stable juxtapleural nodule with smooth margins along the left major fissure measuring 7 millimeters (series 3, image 186). Stable calcified granuloma in the right upper lobe. Heart: Heart size is normal. No pericardial effusion. Three-vessel coronary calcifications. Thoracic Vessels: The aorta and pulmonary arteries demonstrate normal size. Mediastinum and Swati: No enlarged lymph nodes. Esophagus: No wall thickening. No hiatal hernia. Upper Abdomen: Visualized upper abdomen solid organs and bowel loops appear normal. IMPRESSION: Stable juxtapleural nodule along the left major fissure. Location and margins favors a benign intrapulmonary lymph node. Lung-rads 2: continued annual follow-up if eligible. Dictated by: Tim Lawson M.D. on 05/23/2023 at 13:13 Approved by: Tim Lawson M.D. on 05/23/2023 at 13:23
== END ==
LOC: CT 11:56
PROVIDERS: PCP Internal Medicine; Referring Provider Internal Medicine; Visit Provider Internal Medicine
DX: R91.1 Solitary pulmonary nodule (principal); J43.2 Centrilobular emphysema; I25.10 Atherosclerotic heart disease of native coronary artery without angina pectoris
CPT/HCPCS: 71250

== ENCOUNTER 2023-06-18 12:59 | Day surgery (SDC) | payer MEDICARE, SELFPAY ==
[2023-06-12 08:18] VITALS: BMI 17.2
--- NOTE | 2023-06-17 15:27 | PM.PREOP ---
Pre-operative Note Interval Note History & Physical reviewed/Exam performed by Physician: Yes Changes to H&P: No
[2023-06-18] VITALS (10 sets, daily range): BP systolic 148–201; BP diastolic 73–116; PULSE 64–103; RESP 16–32; TEMP 36.6–36.8; O2SAT 92–97; BMI 17.2
--- NOTE | 2023-06-18 | PATH_ITS ---
[facility] Accession Number: [id number] No. of containers..01 Tissue . 01 Material submitted: . gallbladder - GALLBLADDER AND CONTENTS . 01 Diagnosis: GALLBLADDER, CHOLECYSTECTOMY: Mild chronic cholecystitis with cholelithiasis. Negative for dysplasia or malignancy. [facility] 06/24/2023 1539 Local . 01 Electronically signed: . Antoine Maharaj MD, Pathologist NPI- [id number] . 01 Gross description: . Received in formalin with two identifiers and gallbladder and contents, is an intact gallbladder, 6.6 x 2.8 x 2.6 cm with an unremarkable external surface. The cystic duct margin is inked blue and no pericystic lymph node is identified. The lumen contains several black roughened calculi measuring up to 0.3 cm in greatest dimension admixed with green viscous bile. The mucosa is green and velvety with no discoloration, polyps, or lesions identified. The cabral average 0.2 cm thick, and account manager sales representative sections to include the cystic duct margin and full thickness sections are submitted in A1. ([id number]) /MRV 06/20/20232 Local . 01 Pathologist provided ICD-10: K80.50 . 01 CPT . 453173 Specimen Comment: A courtesy copy of this report has been sent to [phone] Performed at: 01 [facility] [address] [place] [address], [place], [place] [id number] MD Roger Quinteros MD Phone: [phone]
[2023-06-18] MEDS: LACTATED RINGERS 1,000 ML 42 ML IV (13:25)
[2023-06-18] MEDS: ACETAMINOPHEN 325 MG TABLET 975 MG PO (13:37)
--- NOTE | 2023-06-18 14:17 | P.OP_ITS ---
Operative Date/Time/Diagnoses Date of procedure: 06/18/23 Time of procedure: 14:18 Pre-op diagnosis: Biliary colic Post-op diagnosis: same Procedure & Clinicians Procedure: Laparoscopic cholecystectomy Same procedure as scheduled: Yes Indications: Symptoms and radiographic findings consistent with biliary colic Surgeon: Jose A Cazares Litigation Associate: Matt Barahona Anesthesia Type: General Operative Notes Findings: Chronic cholecystitis Specimen(s): other (Gallbladder) Estimated Blood Loss (mL): 20 Procedure in detail: The patient was placed supine on the table and bilateral lower extremity compression devices were applied. Anesthesia was induced they were intubated with an endotracheal tube and received 2g of Ancef. A time-out was performed. They were prepped and draped in sterile fashion. An infraumbilical incision was made. The fascia was elevated incised and the abdomen was entered atraumatically. A blunt tip 12mm balloon trocar was then inserted, pneumoperitoneum was established and inspection of the abdomen demonstrated no evidence of injury. They were placed head up and right side up and then a 11 mm port was placed high in the epigastrium and two 5mm in the right upper quadrant. There were stones within the gallbladder it had evidence of chronic cholecystitis. The gallbladder was grasped by the fundus and retracted over the liver and retracted laterally by the infundibulum. Using electrocautery the lateral plane between the gallbladder and the liver was opened towards the fundus. The gallbladder was then retracted laterally and the medial plane was developed in the same manner. With the gallbladder mobilized the bottom of the cystic plate was visualized. The hepatocystic triangle was meticulosly skeletonized with blunt dissection of fat and fibrous tissue from both the front and the back. Only two structures were then clearly seen entering the gallbl adder the cystic duct and the cystic artery. With the critical view of safety fully established the cystic duct was clipped twice proximally and once distally using the 10 mm Weck hemoclip applied under direct visualization and then sharply divided. The cystic artery was divided in the same fashion. The gallbladder was removed from the liver bed using electro cautery. The liver bed was then inspected for hemostasis and this was achieved. The abdomen was irrigated with sterile saline and inspection was made that showed the clips in good position. The specimen was removed using Endo-Catch. The abdomen was desufflated. The umbilical fascia was closed with 0 Vicryl in a [id number] fashion under direct visualization. Skin incisions were irrigated and closed with 4-0 Monocryl. 30 ml of 0.25% bupivacaine was infiltrated into the subcutaneous tissue of the incisions. The wounds were sealed with Dermabond. Patient emerged from anesthesia was extubated and transferred to recovery in stable condition. The sponge and instrument count at the end of the operation was correct. Complications: none Post-operative Disposition: same day surgery
[2023-06-18] MEDS: CEFAZOLIN 2 GM/100 ML PREMIX 100 ML IV (15:23)
[2023-06-18] MEDS: BUPIVACAINE 0.25% (PF) VIAL 30 ML INJ (15:25)
== END 2023-06-18 16:53 | disposition home or self-care (01) ==
PROVIDERS: PCP Internal Medicine; Referring Provider Surgery; Visit Provider Surgery
PROC: 0FT44ZZ Resection of Gallbladder, Percutaneous Endoscopic Approach (ICD-10-PCS; CPT 47562; principal; 2023-06-18 14:00)
DX: K80.10 Calculus of gallbladder with chronic cholecystitis without obstruction (principal)
CPT/HCPCS: 47562; J0690; J1100; J1885; J2405; J2704; J3010

== ENCOUNTER → 2024-01-20 11:33 | Outpatient (CLI) | payer MEDICARE, SELFPAY | PROVIDERS: PCP Internal Medicine; Referring Provider Internal Medicine; Visit Provider Internal Medicine | DX: J44.9 Chronic obstructive pulmonary disease, unspecified (principal); F17.210 Nicotine dependence, cigarettes, uncomplicated; R94.2 Abnormal results of pulmonary function studies | CPT/HCPCS: 94060; 94726; 94729 ==

== ENCOUNTER → 2024-03-31 10:33 | Outpatient (CLI) | payer MEDICARE, SELFPAY ==
[2024-03-31 11:28] LABS: Aspartate Aminotransferase 44 IU/L (14-36); BUN Creatinine Ratio 19.7 (6-22); Blood Urea Nitrogen 14 mg/dL (7-17); Calcium 9.9 mg/dL (8.4-10.2); Carbon Dioxide 33 mmol/L (22-32); Chloride 102 mmol/L (98-107); Cholesterol 301 mg/dL (140-199); Estimated Glomerular Filt Rate > 60 mL/min (>60); Glucose 112 mg/dL (80-110); HEMOLYSIS < 15 (0-50); Potassium 4.5 mmol/L (3.4-5.1); Sodium 139 mmol/L (137-145); Triglycerides 107 mg/dL (35-150)
[2024-03-31 11:46] LABS: HDL Cholesterol 120 mg/dL (40-60); LDL Cholesterol Calculated 160 mg/dL (<100)
== END ==
PROVIDERS: PCP Internal Medicine; Referring Provider Internal Medicine; Visit Provider Internal Medicine
DX: E78.2 Mixed hyperlipidemia (principal); R03.0 Elevated blood-pressure reading, without diagnosis of hypertension
CPT/HCPCS: 36415; 80048; 80061; 84450